=== PATIENT | male | born 1955 | race Caucasian/White ===

== ENCOUNTER 2019-12-27 11:46 | Observation (INO) | payer OTHER, SELFPAY ==
[2019-12-27] VITALS (8 sets, daily range): BP systolic 115–154; BP diastolic 59–88; PULSE 59–70; RESP 14–20; TEMP 36.2–36.4; O2SAT 96–98; BMI 30.7
--- NOTE | ~2019-12-27 | XR_ITS ---
XR chest 2V DATE: 12/27/2019 12:14 INDICATION: Acute onset chest pain, midsternal area. History of atrial fibrillation. TECHNIQUE: PA and lateral views COMPARISON: None FINDINGS: Left-sided cardiac defibrillator sinus pacemaker device with leads overlying right atrium a nd right ventricle. Normal heart size. Aortic calcification and mild tortuosity. No hilar or mediasti nal enlargement. No pulmonary infiltrate or consolidation, pleural effusion or pulmonary vascular congestion or pneumo thorax. Degenerative spurring of the thoracic spine. IMPRESSION: No active cardiopulmonary disease Left dual-lead pacemaker/defibrillator Reviewed, dictated and finalized at location [facility].
--- NOTE | 2019-12-27 11:51 | ECG_ITS ---
Measurements Intervals [place] Rate: 66 P: 59 [place]: 175 QRS: -40 QRSD: 126 T: 223 QT: 390 QTc: 409 Interpretive Statements SINUS RHYTHM WITH SINUS ARRHYTHMIA INTRAVENTRICULAR CONDUCTION DELAY LEFT VENTRICULAR HYPERTROPHY AND ST-T CHANGE ANTEROLATERAL INFARCT, AGE INDETERMINATE INFERIOR INFARCT, AGE INDETERMINATE ABNORMAL ECG Electronically Signed On 12-27-2019 12:49:02 CDT by Rashid Palmer D.O.
[2019-12-27 12:06] LABS: Basophils Absolute Auto 0.1 K/mm3 (0.0-0.1); Basophils Percent Auto 0.8 % (0.2-1.2); Eosinophils Absolute Auto 0.3 K/mm3 (0-0.3); Eosinophils Percent Auto 4.3 % (0-4.4); Hematocrit 40.2 % (42.0-52.0); Hemoglobin 13.6 g/dL (14.0-18.0); Immature Granulocyte Absolute 0.02 K/mm3 (0.00-0.031); Immature Granulocyte Percent A 0.3 % (0-0.5); Lymphocytes Absolute Auto 1.61 K/mm3 (0.9-3.2); Lymphocytes Percent Auto 21.1 % (18.3-44.2); Mean Corpuscular HGB Conc 33.8 g/dl (32-36); Mean Corpuscular Hemoglobin 30.3 pg (26-34); Mean Corpuscular Volume 89.5 fl (80-100); Mean Platelet Volume 10.1 fl (7.4-10.4); Monocytes Absolute Auto 0.7 K/mm3 (0.1-0.6); Monocytes Percent Auto 8.8 % (2.6-8.5); Neutrophils Absolute Auto 4.9 K/mm3 (1.3-6.7); Neutrophils Percent Auto 64.7 % (45.5-73.1); Platelet Count Result 242 k/mm3 (150-375); Red Blood Count 4.49 M/mm3 (4.6-6.20); Red Cell Distribution Width 12.5 % (11.5-14.5); White Blood Count 7.6 K/mm3 (4.5-10.0)
[2019-12-27 12:18] LABS: Blood Urea Nitrogen 14 mg/dL (9-20); Calcium 9.1 mg/dL (8.4-10.2); Carbon Dioxide 26 mmol/L (22-30); Chloride 100 mmol/L (98-107); Estimated CRCL calculation 91 ml/min; Estimated Glomerular Filt Rate > 60; Glucose 228 mg/dL (75-110); Potassium 3.8 mmol/L (3.4-5.0); Sodium 135 mmol/L (137-145)
--- NOTE | 2019-12-27 12:19 | ED.CHESTPAIN ---
HPI - Chest Pain General Chief Complaint: Chest Pain Stated Complaint: chest pain Time Seen by Provider: 12/27/19 12:17 Source: patient Mode of arrival: EMS Limitations: no limitations History of Present Illness HPI narrative: A 64 y/o male presents to the ED, via EMS, with c/o midsternal CP. Pt states that he was sitting watching television when the CP started. He checked his pulse rate and blood pressure at home and both were high. Pt has a PMHx of NH x3 so he decided to call 911. He adds that the CP resolved after Nitroglycerine x2 and lasted 45 minutes in total. Pt reports dry mouth and anxiety, but denies any CP in the ED. He has a PMHx of HTN, hyperlipidemia, CHF, and coronary STENT x4. His last NH was in 2017 and he takes Brilinta BID and Aspirin 81mg daily. MD complaint: chest pain (Midsternal) Pertinent past history: prior NH Onset (ago): hour(s) (Today) Timing of current episode: now resolved Onset: during rest Pain location: other (Midsternal) Relieving factors: nitroglycerin (x2) Associated symptoms: other (Dry mouth, anxiety) Treatment prior to arrival: nitroglycerin (x2) Related Data Home Medications Medication Instructions Recorded Confirmed acetaminophen-codeine 1 tablet PO TID PRN 12/27/19 12/27/19 [Tylenol-Codeine #4] echinacea 800 mg PO DAILY 12/27/19 12/27/19 glucos sul 0GLp-lid-bgtuv-C-Mn 2 cap PO DAILY 12/27/19 12/27/19 [Glucosamine Chondroitin] isosorbide mononitrate 15 mg PO DAILY 12/27/19 12/27/19 omega 5-imw-zfa-fish oil [Fish Oil] 1 cap PO BID 12/27/19 12/27/19 omeprazole 40 mg PO DAILY 12/27/19 12/27/19 pantoprazole 40 mg PO BID 12/27/19 12/27/19 rosuvastatin 10 mg PO QPM 12/27/19 12/27/19 ticagrelor [Brilinta] 90 mg PO Q12H 12/27/19 12/27/19 Allergies Allergy/AdvReac Type Severity Reaction Status Date / Time oxycodone AdvReac Nightmare Verified 12/27/19 11:53 Fxyweya-Fql-Vfc Reductase AdvReac Fatigued Verified 12/27/19 11:53 Inhibitor Review of Systems Review of Systems: All systems reviewed & are unremarkable except as noted in HPI and below ENT: Reports dry mouth Cardiovascular: Cardiovascular: Reports chest pain (Resolved) Psychiatric: Psychiatric: Reports anxiety PMFSH Past Medical History Medical History Arthritis Barretts esophagus CHF (congestive heart failure) Chronic back pain Diabetes GERD (gastroesophageal reflux disease) Heart attack x3 HTN (hypertension) Hyperlipidemia Peripheral neuropathy Sleep apnea Uses bilevel positive airway pressure (BPAP) ventilation at home Surgical History Surgical History History of cardiac catheterization History of coronary artery stent placement x4 History of knee replacement, total Right History of spinal fusion Social History Social History (Updated 12/27/19 @ 15:23 by Estela Veliz PA-C) Social History: Patient drinks socially maybe a few beers a week. He is not smoke but he used to. He quit in 2001 and smoked 1 pack per day. 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 He designates his friend Todd Ferris as his decision maker if needed. He would like to be a full code. His PCP is located at the [place] and he does not know the name. Years smoked: 30 Smoking status: Former smoker Tobacco type: cigarettes Second hand tobacco smoke exposure: Yes Smoking end date: 10/14/04 Alcohol intake: never Substance use: never Gender identity (if verbalized by the patient): Male Spiritual care concerns: No Agree to blood products: Yes Exam Narrative: Exam Narrative: General appearance: Well-developed, well-nourished Skin: Normal color Head: Normocephalic, nontraumatic Eyes: Clear conjunctiva ENT: Oropharynx normal, ears normal, nose normal Neck: Supple, nontender Chest and respiratory: Airway patent, no respiratory distress, no accessory muscle use Heart: Regular rate/rhythm
[2019-12-27 12:20] LABS: INR 1.2; Partial Thromboplastin Time 24.7 SECONDS (22.3-36.8); Prothrombin Time 14.7 Seconds (11.1-14.7)
[2019-12-27 12:28] LABS: Troponin I < 0.012 ng/mL (0.000-0.034)
[2019-12-27] MEDS: ENOXAPARIN 100 MG/ML SYRINGE 90 MG SUB-Q (14:12)
--- NOTE | 2019-12-27 15:14 | PM.IMHP ---
H&P: HPI History of Present Illness Chief complaint: chest pain Narrative: Esteban Clinton is a 64 year old male who was in his normal state of health this morning when he started having chest pain while watching TV. He states this chest pain felt like a chest tightness that started in his mid sternum and did not radiate. He said this was associated with nausea, hot sweats, and a dry mouth. He said this was similar to how he felt when he had his heart attack in 2004 and again in 2012. He took 2 nitros which resolved the pain completely. He had pain for about 45 minutes. He had no associated diaphoresis or shortness of breath. At the moment my exam he has had no recurrence of his chest pain. His last catheterization was in 2016 or 2018 at [facility] where he sees Dr. Timmons. His 1st WI was July 2005 and he received 2 stents. He had another cardiac catheterization in 2012 and received 2 additional stents. In 2016/2017 he just had to get a clot cleaned out and was placed on Brilinta. In 2018 he was given a pacemaker and defibrillator for reassurance but is unaware if he has systolic heart failure. He says that he has not had any swelling in his lower extremities. He doesn't remember when his last echo was. For the last 4-5 months he has been more tired and having more dyspnea on exertion when using stairs and going long distances. He has not had any alcohol recently and he does not drink much caffeine. He is usually pretty active and has not had any chest pain with activity lately. He is a diet-controlled diabetic and his last A1c was under 7. His average glucose is 110. He denies diarrhea, constipation, leg swelling, cough, fevers or chills. Review of Systems Review of Systems: All systems reviewed & are unremarkable except as noted in HPI and below PMFSH Past Medical History Medical History Arthritis Barretts esophagus CHF (congestive heart failure) Chronic back pain Diabetes GERD (gastroesophageal reflux disease) Heart attack x3 HTN (hypertension) Hyperlipidemia Peripheral neuropathy Sleep apnea Uses bilevel positive airway pressure (BPAP) ventilation at home Surgical History Surgical History History of cardiac catheterization History of coronary artery stent placement x4 History of knee replacement, total Right History of spinal fusion Family History Family History (Updated 12/27/19 @ 15:22 by Estela Veliz PA-C) Mother Hypertension Father Cerebrovascular accident Social History Social History (Updated 12/27/19 @ 15:23 by Estela Veliz PA-C) Social History: Patient drinks socially maybe a few beers a week. He is not smoke but he used to. He quit in 2001 and smoked 1 pack per day. 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 He would like to be a full code. His PCP is located at the [place] and he does not know the name. Smoking status: Former smoker Second hand tobacco smoke exposure: Yes Smoking end date: 10/14/04 Gender identity (if verbalized by the patient): Male Meds Home Medications and Allergies Home Medications Medication Instructions Recorded Confirmed Type acetaminophen-codeine 1 tablet PO TID PRN 12/27/19 History [Tylenol-Codeine #4] isosorbide mononitrate 30 mg PO DAILY 12/27/19 History omeprazole 40 mg PO DAILY 12/27/19 History pantoprazole 40 mg PO QAM 12/27/19 History rosuvastatin 10 mg PO DAILY 12/27/19 History ticagrelor 90 mg PO Q12H 12/27/19 History ticagrelor [Brilinta] 90 mg PO Q12H 12/27/19 History Allergies Allergy/AdvReac Type Severity Reaction Status Date / Time oxycodone AdvReac Nightmare Verified 12/27/19 11:53 Eczoznu-Xid-Hpt Reductase AdvReac Fatigued Verified 12/27/19 11:53 Inhibitor Vital Signs Vital Signs - 24 hr
[2019-12-27 15:19] LABS: Troponin I < 0.012 ng/mL (0.000-0.034)
--- NOTE | 2019-12-27 15:39 | PC.NURSE ---
This patient, Esteban Clinton, was admitted to IMU Room 214-01. Patient/family oriented to hospital policies and general routines including ID bracelet, bed and alarms, visiting hours, pain management, procedures, bathroom and other care routines, personal items, smoking policy, room service/diet, and visiting hours. Valuables list has been completed. Information on how to activate the Rapid Response Team has been discussed. Patient/Family are encouraged to report perceived risks to care and to ask questions if they do not understand what they are told or what they should do.
[2019-12-27 17:20] LABS: Glucose Point of Care 141 (65-105)
[2019-12-27 18:24] LABS: Troponin I < 0.012 ng/mL (0.000-0.034)
[2019-12-27] MEDS: ROSUVASTATIN 10 MG TABLET PO (21:35)
[2019-12-27] MEDS: TICAGRELOR 90 MG TABLET PO (21:36)
[2019-12-27 22:08] LABS: Glucose Point of Care 151 (65-105)
[2019-12-28] VITALS (28 sets, daily range): BP systolic 109–155; BP diastolic 57–95; PULSE 60–76; RESP 12–24; TEMP 36.1–36.9; O2SAT 94–100
--- NOTE | 2019-12-28 | ECHO_ITS ---
Patient Info Name: Esteban Clinton Age: 64 years : 1955 Gender: Male Ht: 72 in Wt: 198 lbs BSA: 2.15 m2 HR: 66 bpm BP: 109 / 57 mmHg Heart Rhythm: Sinus Rhythm Technical Quality: Good Exam Date: 12/28/2019 9:44 AM Exam Location: [facility] Pulmonary Patient Status: Inpatient Admit Date: 12/27/2019 Staff Ordering Physician: Estela Veliz PA-C Stained Glass Window Designer: Demar Toussaint RDCS Attending Provider: Katherine Mcdonald PA-C Referring Physician: Keren MAK; Exam Type: CA echo doppler color flow Study Info Indications R07.9 - Chest pain, unspecified Complete two-dimensional, color flow and Doppler transthoracic echocardiogram is performed. Strain analysis performed. History/Risk Factors Chest pain; CHF, CAD w/ stents x4. Summary 1. Left ventricular chamber dimension is mildly enlarged. 2. Left ventricular systolic function is moderately reduced, estimated at 35-40%. 3. The inferior wall is akinetic posterior wall is severely hypodynamic as is the septum. 4. Linear artifact in right ventricle suggestive of catheter(s), pacemaker lead(s), or ICD lead(s). 5. There is mild aortic valve sclerosis. Left Ventricle Left ventricular chamber dimension is mildly enlarged. Left ventricular systolic function is moderately reduced, estimated at 35-40%. The left ventricular diastolic function is grade I diastolic dysfunction. The inferior wall is akinetic posterior wall is severely hypodynamic as is the septum. Right Ventricle Right ventricular chamber dimension is normal. Linear artifact in right ventricle suggestive of catheter(s), pacemaker lead(s), or ICD lead(s). Left Atria Left atrial chamber dimension is mildly enlarged. Right Atria Right atrial chamber dimension is normal. Linear artifact in the right atrium suggestive of catheter(s), pacemaker lead(s), or ICD lead(s). Aortic Valve The aortic valve is trileaflet. There is mild aortic valve sclerosis. Pulmonic Valve The pulmonic valve is not well visualized. Mitral Valve The mitral valve has normal leaflets. There is trace mitral valve regurgitation. Tricuspid Valve The tricuspid valve leaflets are normal. Pericardium/Pleural The pericardium appears normal. Aorta The aortic root size at the sinus of Valsalva is normal. Left Ventricular Outflow Tract Name Value Normal LVOT 2D LVOT Diameter 2.0 cm LVOT Doppler LVOT Peak Gradient 5 mmHg LVOT Mean Gradient 3 mmHg LVOT VTI 20 cm LVOT VTI/AV VTI Ratio 0.6 LVOT Stroke Volume 65 ml LVOT CO 3.9 l/min LVOT CI 1.8 l/min/m2 Mitral Valve Name Value Normal MV Doppler MV Decel Long 1
[2019-12-28] MEDS: ENOXAPARIN 100 MG/ML SYRINGE 90 MG SUB-Q (02:00)
[2019-12-28 04:53] LABS: Hematocrit 40.7 % (42.0-52.0); Mean Corpuscular HGB Conc 34.4 g/dl (32-36); Mean Corpuscular Hemoglobin 30.6 pg (26-34); Mean Corpuscular Volume 88.9 fl (80-100); Mean Platelet Volume 9.9 fl (7.4-10.4); Platelet Count Result 232 k/mm3 (150-375); Red Blood Count 4.58 M/mm3 (4.6-6.20); Red Cell Distribution Width 12.4 % (11.5-14.5); White Blood Count 6.9 K/mm3 (4.5-10.0)
[2019-12-28 05:09] LABS: Alanine Aminotransferase 29 U/L (4-50); Albumin Level 4.1 g/dL (3.5-5.1); Alkaline Phosphatase 44 U/L (38-126); Aspartate Amino Transferase 31 U/L (17-59); Bilirubin,Total 0.6 mg/dL (0.2-1.3); Blood Urea Nitrogen 14 mg/dL (9-20); Calcium 9.5 mg/dL (8.4-10.2); Carbon Dioxide 28 mmol/L (22-30); Chloride 103 mmol/L (98-107); Cholesterol 149 mg/dL (0-200); Estimated CRCL calculation 103 ml/min; Estimated Glomerular Filt Rate > 60; Glucose 155 mg/dL (75-110); HDL Direct 32 mg/dL; Potassium 4.2 mmol/L (3.4-5.0); Sodium 136 mmol/L (137-145); Triglycerides 131 mg/dL (<150)
[2019-12-28 05:20] LABS: LDL Cholesterol Direct 99 mg/dL
[2019-12-28 05:48] LABS: Hemoglobin A1C 7.5 % (<5.7)
--- NOTE | 2019-12-28 06:00 | ECG_ITS ---
Measurements Intervals [place] Rate: 60 P: 28 ME: 186 QRS: -42 QRSD: 113 T: 244 QT: 432 QTc: 432 Interpretive Statements ELECTRONIC ATRIAL PACEMAKER LEFT VENTRICULAR HYPERTROPHY AND ST-T CHANGE INFERIOR INFARCT, AGE INDETERMINATE ANTEROLATERAL INFARCT, CONSIDER RECENT ABNORMAL ECG Electronically Signed On 12-28-2019 9:18:33 CDT by Rashid Palmer D.O.
[2019-12-28 07:44] LABS: Glucose Point of Care 158 (65-105)
[2019-12-28] MEDS: ISOSORBIDE MONONITRATE 15 MG TAB.ER.24H PO (08:51)
[2019-12-28] MEDS: PANTOPRAZOLE 40 MG TABLET PO ×2 (08:51→21:13)
[2019-12-28] MEDS: TICAGRELOR 90 MG TABLET PO ×2 (08:51→21:13)
--- NOTE | 2019-12-28 11:49 | PM.CNCAR ---
Assessment and Plan Assessment and plan (1) CAD (coronary artery disease): Code(s): I25.10 - Atherosclerotic heart disease of [place] coronary artery without angina pectoris Status: Acute Assessment and Plan: Chest pain is concerning for angina. Patient has already received Lovenox. Will hold further dose of Lovenox and plan for cardiac catheterization. I talked about the risks benefits alternatives and he wishes to have an angiogram to define his anatomy. His symptoms are very reminiscent of his his previous myocardial infarction pain. Continue statin, Brilinta. Will increase his isosorbide up to 30 (2) Chest pain: Qualifiers: Chest pain type: unspecified Qualified Code(s): R07.9 - Chest pain, unspecified Code(s): R07.9 - Chest pain, unspecified Status: Acute Assessment and Plan: Concerning for angina. 2D echocardiogram Doppler will be ordered and reviewed. Cardiac catheterization as above (3) Sleep apnea: Code(s): G47.30 - Sleep apnea, unspecified Status: Acute (4) Hypertension: Code(s): I10 - Essential (primary) hypertension Status: Acute Assessment and Plan: Above goal. Will clarify with patient as to why he is not on a beta-leigha with or LUBA-inhibitor. Will start is able History of Present Illness History of Present Illness Consult date/time: 12/28/19 11:49 Requesting physician: Estela Veliz PA-C Consult reason: chest pain Reason For Visit: chest pain Narrative: Date of service 12/28/2019: History: Patient is a 64-year-old male with a known history of coronary disease. He does have his cardiology care performed at the [place]. He developed chest tightness yesterday morning while watching TV. It felt very similar to his previous myocardial infarctions. It started in his chest and he became diaphoretic and flushed feeling with a dry mouth. It radiated into his shoulder blades which is how his previous myocardial infarctions presented also. He took a nitroglycerin and then called 911. Blood pressure was markedly elevated at the time that EMS arrived. Patient did receive a nitroglycerin spray by EMS and his symptoms did gradually resolve and improved. He denies any recent chest pain, syncope, presyncope, paroxysmal nocturnal dyspnea, orthopnea, edema or palpitations. He has been feeling tired over the past couple of months. He had his 1st myocardial infarction 2003 and had another catheterization 2012. He had 2 stents placed during each procedure. He also had a pacemaker placed. Review of Systems Review of Systems: All systems reviewed & are unremarkable except as noted in HPI and below Constitutional: Constitutional: Reports weakness Eyes: Eyes: Denies blurry vision ENT: Denies dysphagia Cardiovascular: Cardiovascular: Reports chest pain Respiratory: Respiratory: Denies dyspnea Gastrointestinal: Gastrointestinal: Reports no additional gastrointestinal complaints Genitourinary: Genitourinary: Denies dysuria Musculoskeletal: Musculoskeletal: Denies neck pain Integumentary/Breasts: Skin/Breast: Denies dry skin Neurologic: Denies headache(s) Psychiatric: Psychiatric: Denies anxiety and Denies confusion Endocrine: Endocrine: Reports fatigue and Denies flushing Hematologic/Lymphatic: Hematologic/Lymphatic: Denies easy bruising Allergic/Immunologic: Allergic/Immunologic: Denies GI upset with certain foods and Denies lip swelling PMFSH Past Medical History Medical History Arthritis Barretts esophagus CHF (congestive heart failure) Chronic back pain Diabetes GERD (gastroesophageal reflux disease) Heart attack x3 HTN (hypertension) Hyperlipidemia Peripheral neuropathy Sleep apnea Uses bilevel positive airway pressure (BPAP) ventilation at home Surgical History Surgical History History of car
[2019-12-28 11:56] LABS: Glucose Point of Care 147 (65-105)
--- NOTE | 2019-12-28 13:37 | WPDMODSED ---
Moderate Sedation Note-Pt Data Patient Data Diagnosis: coronary artery disease with previous [place]/ PCI is with no records of this available at this hospital presumed history of ischemic cardiomyopathy with previous ICD implantation again no records available to us episode of chest pain occurring at home prompting admission and consultation to our practice Present Complaint: no current complaints Procedure to be performed/Plan: left heart catheterization Allergies Allergy/AdvReac Type Severity Reaction Status Date / Time oxycodone AdvReac Nightmare Verified 12/27/19 11:53 Lbprlvm-Htb-Hxd Reductase AdvReac Fatigued Verified 12/27/19 11:53 Inhibitor Home Medications Medication Instructions Recorded Confirmed Type acetaminophen-codeine 1 tablet PO TID PRN 12/27/19 12/27/19 History [Tylenol-Codeine #4] echinacea 800 mg PO DAILY 12/27/19 12/27/19 History glucos sul 6HPr-cuj-ckxur-C-Mn 2 cap PO DAILY 12/27/19 12/27/19 History [Glucosamine Chondroitin] isosorbide mononitrate 15 mg PO DAILY 12/27/19 12/27/19 History omega 2-gif-hsd-fish oil [Fish Oil] 1 cap PO BID 12/27/19 12/27/19 History omeprazole 40 mg PO DAILY 12/27/19 12/27/19 History pantoprazole 40 mg PO BID 12/27/19 12/27/19 History rosuvastatin 10 mg PO QPM 12/27/19 12/27/19 History ticagrelor [Brilinta] 90 mg PO Q12H 12/27/19 12/27/19 History Current Medications: Active Medications Aspirin (Aspirin Chewable) 81 mg PO DAILY@0800 [facility] Carvedilol (Coreg) 3.125 mg PO Q12HR [facility] Dextrose (Dextrose 50% Syringe) 12.5 gm IV PUSH PRN PRN; Protocol PRN Reason: Hypoglycemia Glucagon (Glucagon For Inj) 1 mg IM PRN PRN; Protocol PRN Reason: Hypoglycemia Glucose (Glutose 15) 15 gm PO PRN PRN; Protocol PRN Reason: Hypoglycemia Dextrose (Dextrose 5% 1,000 Ml) 1,000 mls @ 100 mls/hr IVPB PRN PRN; Protocol PRN Reason: Hypoglycemia Insulin Aspart (Novolog) 2 - 5 units SUB-Q TIDWM MARCELINO; Protocol Last Admin: 12/28/19 12:20 Dose: Not Given Documented by: Isosorbide Mononitrate (Imdur) 30 mg PO QAM MARCELINO Morphine Sulfate (Morphine Sulfate Inj) 1 mg IV PUSH Q4H PRN PRN Reason: chest pain Nitroglycerin (Nitrostat Subl 0.4 Mg (1/150)) 0.4 mg SUBLINGUAL Q5MIN PRN PRN Reason: Chest Pain Pantoprazole Sodium (Protonix) 40 mg PO Q12HR [facility] Last Admin: 12/28/19 08:51 Dose: 40 mg Documented by: Rosuvastatin Calcium (Crestor) 10 mg PO QPM MARCELINO Last Admin: 12/27/19 21:35 Dose: 10 mg Documented by: Ticagrelor (Brilinta) 90 mg PO Q12HR [facility] Last Admin: 12/28/19 08:51 Dose: 90 mg Documented by: Sedation/Anesthesia: No previous sedation/anesthesia problems (including family history). [facility] Past Medical History Medical History (Updated 12/28/19 @ 11:55 by Antonio Velásquez MD) Arthritis Barretts esophagus CHF (congestive heart failure) Chronic back pain Diabetes GERD (gastroesophageal reflux disease) Heart attack x3 HTN (hypertension) Hyperlipidemia Hypertension Peripheral neuropathy Sleep apnea Uses bilevel positive airway pressure (BPAP) ventilation at home Surgical History Surgical History History of cardiac catheterization History of coronary artery stent placement x4 History of knee replacement, total Right History of spinal fusion Family History Family History Mother Hypertension Father Cerebrovascular accident Social History Social History Social History: Patient drinks socially maybe a few beers a week. He is not smoke but he used to. He quit in 2001 and smoked 1 pack per day. 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 He would like to be a full code. His PCP is located at the [place] and he does not know the name. Years smoked: 30 Smoking status: Former smoker Tobacco type: cigarettes S
--- NOTE | 2019-12-28 13:40 | PM.IMPN ---
Progress Note: A&P Assessment and Plan (1) Angina at rest: Code(s): I20.8 - Other forms of angina pectoris Status: Acute Assessment and Plan: Patient had chest pain relieved by nitro at rest and has been feeling more tired and fatigued with dyspnea on exertion the last 4-5 months. He was given a full strength Lovenox in the ER we will continue with that and his home medications which include Brilinta. Troponin is negative x3. Echo is pending. EKG reviewed with no EKG to be compared to. There does seem to be some ST changes in the anterior and lateral leads but no STEMI. [facility] He has not had any more chest pain since being here in the hospital. Dr. Velásquez evaluated the patient and would like to complete a Cardiac Cath to rule out angina and need for PCI. Will monitor for any additional chest pain. Will put in p.r.n. nitroglycerin and continue 90 mg per kg of Lovenox b.i.d.. (2) Diet-controlled diabetes mellitus: Code(s): E11.9 - Type 2 diabetes mellitus without complications Status: Acute Assessment and Plan: Serum glucose this morning was 155. A1c is 7.5%. Will continue with sliding scale insulin and Accu-Cheks. (3) CAD (coronary artery disease): Code(s): I25.10 - Atherosclerotic heart disease of [place] coronary artery without angina pectoris Status: Acute Assessment and Plan: Status post cardiac stents in 2004 and 2012. Currently on Brilinta due to an aspirin failure. See above plan (4) CHF (congestive heart failure): Code(s): I50.9 - Heart failure, unspecified Status: Acute Assessment and Plan: Currently compensated. Unknown type. Echo is pending (5) Sleep apnea: Code(s): G47.30 - Sleep apnea, unspecified Status: Acute Assessment and Plan: Patient utilizes a BiPAP at home. Continue while hospitalized. (6) Peripheral neuropathy: Code(s): G62.9 - Polyneuropathy, unspecified Status: Acute Assessment and Plan: Chronic with no acute issues (7) Barretts esophagus: Code(s): K22.70 - Lemons's esophagus without dysplasia Status: Acute Assessment and Plan: Will continue pantoprazole daily. Time Spent With Patient Time with patient: 25 - 35 minutes Subjective Date/time seen: 12/28/19 13:40 Interval history: Date of service 12/28/2019: The patient reports feeling better today. He has not had any more chest pain since arrival. He does report having some intermittent sweats today, but denies any shortness of breath at rest, dyspnea on exertion, lightheadedness, dizziness, weakness or any other issues. He is NPO at this time, denies abdominal pain, nausea, vomiting, diarrhea. Review of Systems Review of Systems: All systems reviewed & are unremarkable except as noted in HPI and below Exam Narrative: Exam Narrative: General: 64-year-old man laying flat in bed watching TV. Appears comfortable. In no acute distress. Skin: No jaundice or cyanosis. Good skin turgor. Neck: Full range of motion. Supple. Respiratory: Lungs are clear to auscultation bilaterally. No bony chest wall tenderness. Cardiovascular: The heart has a regular rate and rhythm without murmur. Lower extremities: No lower extremity edema. Distal pulses are easily palpated. No calf tenderness to palpation. Gastrointestinal: The abdomen is soft, nontender and nondistended with active bowel sounds. Psychiatric: Lucid and oriented. Memory intact. Neurologic: No focal deficits. Speech is clear. No facial drooping. Objective Data Vital Signs Vital Signs: Vital Signs - 24 hr 12/27/19 14:02 12/27/19 15:01 12/27/19 16:00 Temperature 97.4 F L Pulse Rate 60 60 61 Respiratory Rate 18 14 18 Blood Pressure 130/59 L 127/74 115/78 Pulse Oximetry 98 98 98 12/27/19 18:00 12/27/19 20:00 12/27/19 22:00 Temperature 97.5 F
--- NOTE | 2019-12-28 15:09 | ECG_ITS ---
Measurements Intervals [place] Rate: 60 P: -17 [place]: 184 QRS: -39 QRSD: 114 T: 246 QT: 428 QTc: 429 Interpretive Statements ELECTRONIC ATRIAL PACEMAKER LEFT VENTRICULAR HYPERTROPHY AND ST-T CHANGE INFERIOR INFARCT, AGE INDETERMINATE T WAVE ABNORMALITY IN ANTEROLATERAL LEADS- CONSIDER ISCHEMIA ABNORMAL ECG Electronically Signed On 12-28-2019 17:03:40 CDT by Rashid Palmer D.O.
--- NOTE | 2019-12-28 15:15 | WPDCARDPROC ---
Cardiac Cath Procedure Note Date of procedure:: 12/28/19 Performing physician:: Curtis Hidalgo MD Indication:: ischemic chest pain occurring in a patient with known CAD and several previous RCA intervention ischemic cardiomyopathy with previously implanted ICD Brief clinical history:: this is a 64-year-old gentleman who came to this hospital's emergency room yesterday with an episode of ischemic sounding nitrate responsive chest pain. None of his previous cardiovascular care has been here at [facility], despite this he was admitted to our hospital for care. Troponins are negative for evidence of ACS in the setting follow-up angiography has been recommended Procedure Procedure performed:: follow-up coronary angiography PTCA of in stent RCA stenosis Sedation/Medication given:: fentanyl 50 mg Versed 2 mg case start time 2:40 p.m. case end time 3:10 p.m. sedation provided by Yo Delgado RN, trained observer Access site:: right femoral artery Estimated blood loss:: 20-30 cc Procedure note:: patient was brought to the cardiac catheterization lab in the postabsorptive state. The right femoral artery was punctured using the modified Seldinger technique after lidocaine was injected 1% lidocaine in the femoral triangle. The patient had a 5 [place] sheath placed into the artery and following this I utilized standard FL4 JR4 catheters to inject the left and right coronary arteries in multiple projections. Following review of the cineangiograms PCI of the mid to distal RCA was recommended and carried out as detailed below. Prior to PCI the 5 [place] sheath was changed over guidewire for a 6 [place] and he was cyst and systemically anticoagulated with Angiomax bolus and infusion technique. The patient already takes aspirin and Brilinta longstanding from his addiction specialist at [facility]. He was therefore not giving any additional Brilinta loading. Following PCI the sheath was sutured into position the patient was taken to the holding area for post PCI recovery. There were no apparent procedural complications. Findings:: The central aortic pressure is 136/86. The left ventricle was not entered during this procedure the left main coronary artery is nicely patent the LAD is a medium caliber artery with no significant lesions. There is about a 40% stenosis in the mid LAD after a 2nd diagonal branch takes its origin. There is KEESHA 3 flow throughout the LAD. The circumflex is a large caliber vessel giving rise to the marginal branches. The circumflex has no significant atherosclerosis the right coronary artery is very large in caliber and dominant to the posterior circulation. There is previously deployed stent material from the proximal right coronary all the way down to the 3rd portion. There is a 90% stenosis which is fairly discrete between the 2nd and 3rd portions of the RCA in regions that are obviously covered by at least 1 and more likely 2 layers of previous stent material that are seen angiographically. There is modest disease about 50% at the bifurcation of the distal RCA as well. The right coronary stenosis was crossed using a 0.014 BMW guidewire. I used to high-pressure noncompliant balloons a 3.5 x 20 mm apex at 18 atmospheres and a 4.0 x 15 mm apex at 20 atmospheres resulting in the vessel being widely patent with no more than 10-20% residual stenosis. Despite a 4 atmosphere inflation at 20 atmospheres there still is modest residual stenosis as described above. I do not believe it was advisable/beneficial to place yet additional stent material in this vessel. Angiographically the vessel was widely patent following the PCI with KEESHA 3 flow. Conclusion:: Coronary artery disease with multiple previous RCA interventions. Current symptoms are due to recurrent high-grade stenosis within the between the 2nd and 3rd portions of this vessel which were treated successfully using a 4 mm high-pressure noncomplian
--- NOTE | 2019-12-28 15:30 | SUR.PHASEII ---
1530-pt has returned from the CCL after an LHC. 6f sheath sutured into place. Angiomax running in at set rate. Groin soft and non-tender, no evidence of bleeding or hematoma noted. Strong right pedal pulse noted. Will continue to monitor
--- NOTE | 2019-12-28 17:47 | SUR.PHASEII ---
1745-6F sheath pulled by RACHEL Mendoza. Pt resting quietly. No distress noted. Will continue to monitor.
--- NOTE | 2019-12-28 18:16 | SUR.PHASEII ---
1814-Firm pressure by Reynaldo Mendoza. Groin soft and non-tender, no evidence of bleeding or hematoma noted. Strong right pedal pulse noted. Will continue to monitor.
--- NOTE | 2019-12-28 19:43 | PC.NURSE ---
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 Unable to complete 1600 assessment or give PM medications.
[2019-12-28 19:56] LABS: Glucose Point of Care 124 (65-105)
--- NOTE | 2019-12-28 20:50 | SUR.PHASEII ---
12/28/19: 2000: NURSE FROM [facility]U CALLED AND STATED THAT SHE FELT THAT THERE WAS A HEMATOMA DEVELOPING AND WANTED A SECOND PAIR OF EYES TO CHECK. WENT DOWN TO PATIENT'S ROOM PATIENT WAS AT A 30 DEGREE AND WAS EATING. CHECKED SITE AND THERE WAS A 3 CM HEMATOMA. IMMEDIATELY HELD PRESSURE AND STARTED TO PRESS OUT HEMATOMA. HELD PRESSURE FOR 20 MIN AND WILL CONTINUE TO MONITOR.
[2019-12-28] MEDS: ROSUVASTATIN 10 MG TABLET PO (21:13)
[2019-12-28] MEDS: carvediloL 3.125 MG TABLET PO (21:13)
[2019-12-28] MEDS: ASPIRIN 81 MG CHEWABLE TABLET PO (21:13)
--- NOTE | 2019-12-28 22:23 | PC.NURSE ---
12/28/19: 2210: AT 2130, REASSESSED PATIENT AND PATIENT WAS DEVELOPING ANOTHER HEMATOMA. HELD PRESSURE FOR 30 MIN, AND PRESSED OUT THE HEMATOM. APPLIED A NEW DRESSING TO MONITOR CLOSER FOR BLEEDING.
--- NOTE | 2019-12-28 23:23 | PC.NURSE ---
RETURNED FROM CATH AT 1940. PT. AWAKE AND ALERT. RIGHT GROIN PALAPTED WITH SMALL HEMATOMA NOTED. CALLED TO JOSEPHINE RAMOS CATH NURSE TO COME AND ASSESS. SITE. 1999 JOSEPHINE RAMOS HERE AT BEDSIDE APPLYING MANUAL PRESSURE TO RIGHT GROIN. RIGHT PEDAL REMAINS WEAK. PRESSURE APPLIED FOR ABOUT X 20MIN.
--- NOTE | 2019-12-28 23:46 | PC.NURSE ---
2250 PT. WAS GIVEN NORCO 10-325 INSTEAD OF 5-325. DR. CARSON WAS NOTIFIED ALSO ANA ROSA MEJIA RN.
[2019-12-29] VITALS (7 sets, daily range): BP systolic 114–143; BP diastolic 64–78; PULSE 60–78; RESP 16–20; TEMP 36.3–37.1; O2SAT 96–97
[2019-12-29 05:11] LABS: Blood Urea Nitrogen 18 mg/dL (9-20); Carbon Dioxide 28 mmol/L (22-30); Chloride 103 mmol/L (98-107); Estimated CRCL calculation 92 ml/min; Estimated Glomerular Filt Rate > 60; Glucose 147 mg/dL (75-110); Potassium 4.1 mmol/L (3.4-5.0); Sodium 136 mmol/L (137-145)
--- NOTE | 2019-12-29 05:11 | ECG_ITS ---
Measurements Intervals [place] Rate: 60 P: 53 OH: 184 QRS: -38 QRSD: 110 T: 237 QT: 420 QTc: 422 Interpretive Statements ELECTRONIC ATRIAL PACEMAKER LEFT VENTRICULAR HYPERTROPHY AND ST-T CHANGE INFERIOR INFARCT, AGE INDETERMINATE WITH POSTERIOR EXTENSION T WAVE ABNORMALITY IN ANTEROLATERAL LEADS- CONSIDER ISCHEMIA BASELINE ARTIFACT- II, III, AVF ABNORMAL ECG Electronically Signed On 12-29-2019 9:14:36 CDT by Rashid Palmer D.O.
[2019-12-29 07:48] LABS: Glucose Point of Care 131 (65-105)
[2019-12-29 09:14] LABS: Hemoglobin A1C 7.6 % (<5.7)
--- NOTE | 2019-12-29 09:14 | PM.PNCARD ---
Progress Note: A&P Assessment and Plan (1) CAD (coronary artery disease): Qualifiers: Coronary Disease-Associated Artery/Lesion type: [place] artery [place] vs. transplanted heart: [place] heart Associated angina: without angina Qualified Code(s): I25.10 - Atherosclerotic heart disease of [place] coronary artery without angina pectoris Code(s): I25.10 - Atherosclerotic heart disease of [place] coronary artery without angina pectoris Status: Acute Assessment and Plan: Chest pain was concerning for angina. Taken to the cardiac catheterization lab 12/28/2019. Findings significant for: Coronary artery disease with multiple previous RCA interventions. Current symptoms are due to recurrent high-grade stenosis within the between the 2nd and 3rd portions of this vessel which were treated successfully using a 4 mm high-pressure noncompliant balloon inflation as described above. No significant left coronary disease identified, possibly 40-50% mid stenosis in the LAD after 2nd diagonal. LV function is known to be moderately depressed was corroborated on echocardiogram this morning as I elected not to inject the left ventricle during this procedure therefore. If recurrent ischemic chest pain occurs patient probably be a reasonable candidate for laser angioplasty of this RCA. Continue aspirin, atorvastatin, Brilinta as well as lisinopril, carvedilol and isosorbide mononitrate. (2) Chest pain: Qualifiers: Chest pain type: unspecified Qualified Code(s): R07.9 - Chest pain, unspecified Code(s): R07.9 - Chest pain, unspecified Status: Acute Assessment and Plan: Cardiac catheterization and angioplasty as above. Echocardiogram: 1. Lleft ventricular chamber dimension is mildly enlarged. 2. Left ventricular systolic function is moderately reduced, estimated at 35-40%. 3. The inferior wall is akinetic posterior wall is severely hypodynamic as is the septum. 4. Linear artifact in right ventricle suggestive of catheter(s), pacemaker lead(s), or ICD lead(s). 5. There is mild aortic valve sclerosis. Continue lisinopril, carvedilol,, aspirin, atorvastatin and isosorbide. (3) Sleep apnea: Qualifiers: Sleep apnea type: unspecified type Qualified Code(s): G47.30 - Sleep apnea, unspecified Code(s): G47.30 - Sleep apnea, unspecified Status: Acute (4) Hypertension: Qualifiers: Hypertension type: essential hypertension Qualified Code(s): I10 - Essential (primary) hypertension Code(s): I10 - Essential (primary) hypertension Status: Acute Assessment and Plan: Improved with lisinopril and carvedilol. Additional Plan OK to discharge from cardiac standpoint. He is to call to make an appointment with his mechanical project manager at the [facility]. He should be seen within the next 1-2 weeks. Plan discussed with Dr. Velásquez 1025 12/29/2019 Time Spent With Patient Time with patient: 15 - 25 minutes Subjective Date/time seen: 12/29/19 09:14 Interval history: Follow up for: Acute coronary syndrome, coronary artery disease status post angioplasty to right coronary artery, hypertension, sleep apnea Date of service: 12/29/2019 Subjective: Immediately noticed a difference of how he felt after the procedure. Denies chest discomfort, shortness of breath, lightheadedness or palpitations. Review of Systems Constitutional: Constitutional: Denies fatigue, Denies headache(s) and Denies weakness Eyes: Eyes: Denies blurry vision ENT: Denies dysphagia, Denies headache(s), Denies lip swelling and Denies neck pain Cardiovascular: Cardiovascular: Reports chest pain and Denies dyspnea Respiratory: Respiratory: Denies dyspnea Gastrointestinal: Gastrointestinal: Denies abdominal pain and Denies dysphagia Genitourinary: Genitourinary: Denies hematuria and Denies dysuria Musculoskeleta
[2019-12-29] MEDS: carvediloL 3.125 MG TABLET PO (10:16)
[2019-12-29] MEDS: lisinopriL 20 MG TABLET PO (10:17)
[2019-12-29] MEDS: TICAGRELOR 90 MG TABLET PO (10:17)
[2019-12-29] MEDS: PANTOPRAZOLE 40 MG TABLET PO (10:17)
[2019-12-29] MEDS: ISOSORBIDE MONONITRATE 30 MG TAB.ER.24H PO (10:18)
[2019-12-29] MEDS: ASPIRIN 81 MG CHEWABLE TABLET PO (10:34)
--- NOTE | 2019-12-29 10:53 | PM.DS ---
DS: Diagnosis Admitting Diagnosis Admitting Diagnosis: Other forms of angina pectoris Discharge Diagnosis (1) Angina at rest: Code(s): I20.8 - Other forms of angina pectoris Status: Acute Assessment and Plan: Patient had chest pain relieved by nitro at rest and has been feeling more tired and fatigued with dyspnea on exertion the last 4-5 months. Today he is feeling much better after his cardiac cath and balloon angioplasty to his RCA. Cardiology recommended continuing Aspirin, Atorvastatin, Brilinta, Lisinopril, Carvedilol and Isosorbide Mononitrite. Troponin is negative x3. Echo showed Left ventricular chamber dimension is mildly enlarged. Left ventricular systolic function is moderately reduced, estimated at 35-40%. The inferior wall is akinetic posterior wall is severely hypodynamic as is the septum. There is mild aortic valve sclerosis. EKG reviewed with no EKG to be compared to. There does seem to be some ST changes in the anterior and lateral leads but no STEMI. Pending records from the [facility]. Cardiology feels he can be discharged home today and have him follow up with his [facility] [employer] Specialist and PCP within 1 week for further evaluation and treatment. Cardiology recommended if recurrent ischemic chest pain occurs patient probably be a reasonable candidate for laser angioplasty of this RCA. (2) Diet-controlled diabetes mellitus: Code(s): E11.9 - Type 2 diabetes mellitus without complications Status: Acute Assessment and Plan: Serum glucose this morning was 147. A1c is 7.5%. He reports being told he has borderline diabetes and he has been on oral medications in the past but he has not tolerated them very well. He states that usually if he exercises in each right he can get his hemoglobin A1c less than 7. Explained to the patient that goal is less than 6.5 in that he needs to be started on something right now to prevent further coronary artery disease. I will start him on metformin 500 mg extended release once daily and have him follow-up with his primary care provider within 1 week. The patient states he has a glucometer and has enough lancets and test strips to check his glucose at least once a day and before meals. He states he can write down his glucose readings in follow-up with his primary care provider for further adjustments as necessary. (3) CAD (coronary artery disease): Qualifiers: Associated angina: without angina Coronary Disease-Associated Artery/Lesion type: [place] artery [place] vs. transplanted heart: [place] heart Qualified Code(s): I25.10 - Atherosclerotic heart disease of [place] coronary artery without angina pectoris Code(s): I25.10 - Atherosclerotic heart disease of [place] coronary artery without angina pectoris Status: Acute Assessment and Plan: Status post cardiac stents in 2004 and 2012. Currently on Brilinta due to an aspirin failure. See above plan (4) CHF (congestive heart failure): Code(s): I50.9 - Heart failure, unspecified Status: Acute Assessment and Plan: Currently compensated, mild systolic dysfunction. Continue on BB, [place] (5) Sleep apnea: Qualifiers: Sleep apnea type: unspecified type Qualified Code(s): G47.30 - Sleep apnea, unspecified Code(s): G47.30 - Sleep apnea, unspecified Status: Acute Assessment and Plan: Patient utilizes a BiPAP at home. Continue while hospitalized. (6) Peripheral neuropathy: Code(s): G62.9 - Polyneuropathy, unspecified Status: Acute Assessment and Plan: Chronic with no acute issues (7) Barretts esophagus: Code(s): K22.70 - Lemons's esophagus without dysplasia Status: Acute Assessment and Plan: Will continue pantoprazole daily. (8) Hyperlipidemia: Code(s): E78.5 - Hyperlipidemia, unspecified Status: Acute Assessment and Plan: T
[2019-12-29 12:12] LABS: Glucose Point of Care 215 (65-105)
== END 2019-12-29 14:00 | disposition home or self-care (01) ==
LOC: ANHED 13:50 → ANHIMU 14:40
PROVIDERS: General Practice; Physician Assistant; Specialist; Admitting Provider Family Medicine; Emergency Provider Emergency Medicine; Visit Provider Internal Medicine
PROC: (CPT 93454; principal; 2019-12-28 14:00)
PROC: 02703ZZ Dilation of Coronary Artery, One Artery, Percutaneous Approach (ICD-10-PCS; CPT 92920; 2019-12-28 14:00)
DX: I25.118 Atherosclerotic heart disease of native coronary artery with other forms of angina pectoris (principal); I11.0 Hypertensive heart disease with heart failure; I50.22 Chronic systolic (congestive) heart failure; E11.42 Type 2 diabetes mellitus with diabetic polyneuropathy; E78.5 Hyperlipidemia, unspecified; K22.70 Barrett's esophagus without dysplasia; K21.9 Gastro-esophageal reflux disease without esophagitis; E87.1 Hypo-osmolality and hyponatremia; I25.2 Old myocardial infarction; G47.30 Sleep apnea, unspecified; Z23 Encounter for immunization; Z87.891 Personal history of nicotine dependence; Z95.810 Presence of automatic (implantable) cardiac defibrillator; Z96.651 Presence of right artificial knee joint; Z98.1 Arthrodesis status; Z99.89 Dependence on other enabling machines and devices
CPT/HCPCS: 36415; 71046; 80048; 80061; 80076; 83036; 84484; 85025; 85027; 85610; 85730; 90471; 90686; 92920; 93005; 93306; 93454; 96372; 99285; A9270; C1725; C1769; C1887; C1894; G0008; G0378; J0583; J1644; J1650; J2250; J3010; J7040